=== PATIENT | female | born 1970 ===

== ENCOUNTER 2018-05-08 09:46 | Outpatient (CLI) | payer OTHER | END 2018-05-08 15:14 | disposition home or self-care (01) | LOC: SONOGRAMA 09:46 | DX: N93.8 Other specified abnormal uterine and vaginal bleeding (principal); N84.0 Polyp of corpus uteri ==

== ENCOUNTER 2022-12-06 10:53 | Outpatient (CLI) | payer OTHER | END 2022-12-06 10:55 | disposition home or self-care (01) | LOC: SONOGRAMA 10:53 | PROVIDERS: ATTEND Pathology Anatomic Pathology & Clinical Pathology | DX: D34 Benign neoplasm of thyroid gland (principal); E04.9 Nontoxic goiter, unspecified ==